=== PATIENT | female | born 1940 | race Caucasian/White ===

== ENCOUNTER 2018-10-28 13:15 | Inpatient (IN) | payer OTHER ==
[~2018-10-28] VITALS: Ht 165.1 cm; Wt 56.7 kg
[2018-11-11] MEDS ORDERED: AVAPRO150 MG (10:58)
[2018-11-11] MEDS ORDERED: SYNTHROID50 MCG (10:58)
[2018-11-11] MEDS ORDERED: ULTRAM50 MG (10:59)
[2018-11-11] MEDS ORDERED: NEURONTIN300 MG (10:59)
[2018-11-11] MEDS ORDERED: PLAVIX75 MG (10:59)
[2018-11-11] MEDS ORDERED: SYNTHROID PO (11:06)
[2018-11-11] MEDS ORDERED: GABAPENTIN400 MG PO (11:06)
[2018-11-20] MEDS ORDERED: LEVO-T25 MCG PO (12:14)
[2018-11-21] MEDS ORDERED: OXYC1TAB9 PO (08:57)
[2018-11-21] MEDS ORDERED: GAS-X125 MG PO (08:57)
[2018-11-21] MEDS ORDERED: AMOX1TAB5 PO (08:58)
[2018-11-21] MEDS ORDERED: INTESTINEX680 M1 PO (08:58)
== END 2018-11-21 13:16 | disposition home or self-care (01) | DRG 330 ==
LOC: SURH 11-11 08:45 → EDUNIT# 11-11 08:45 → O/R 11-17 06:48 → SURH 11-17 06:48
PROVIDERS: Urology; ADMIT Surgery
PROC: 0T788DZ Dilation of Bilateral Ureters with Intraluminal Device, Via Natural or Artificial Opening Endoscopic (ICD-10-PCS; 2018-11-17)
PROC: 0DJD8ZZ Inspection of Lower Intestinal Tract, Via Natural or Artificial Opening Endoscopic (ICD-10-PCS; 2018-11-17)
PROC: 0DTN4ZZ Resection of Sigmoid Colon, Percutaneous Endoscopic Approach (ICD-10-PCS; principal; 2018-11-17 10:45)
PROC: 0UQG4ZZ Repair Vagina, Percutaneous Endoscopic Approach (ICD-10-PCS; 2018-11-17 10:45)
DX: K57.20 Diverticulitis of large intestine with perforation and abscess without bleeding (principal); N82.3 Fistula of vagina to large intestine; K91.72 Accidental puncture and laceration of a digestive system organ or structure during other procedure; N73.6 Female pelvic peritoneal adhesions (postinfective); I11.9 Hypertensive heart disease without heart failure; E03.8 Other specified hypothyroidism

== ENCOUNTER 2018-10-28 13:55 | Outpatient (CLI) | payer OTHER | END 2018-10-28 15:01 | disposition HB | LOC: LAB 13:55 | DX: K57.32 Diverticulitis of large intestine without perforation or abscess without bleeding (principal); N82.3 Fistula of vagina to large intestine ==